=== PATIENT | female | born 2000 | race Caucasian/White ===

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

== ENCOUNTER → 2021-02-12 | Outpatient (CLI) | payer OTHER ==
[2021-02-12 11:17] LABS: MEAN CORPUSCULAR HEMOGLOBIN 29.5 pg (27.0-34.8); MEAN CORPUSCULAR HGB CONC 34.2 g/dL (32.4-35.8); MEAN PLATELET VOLUME 7.9 fL (7.4-10.4); PLATELET COUNT 271 x10^3/uL (130-400); RED BLOOD COUNT 4.28 x10^6/uL (3.82-5.3); RED CELL DISTRIBUTION WIDTH 13.6 % (9.6-15.2)
== END | disposition home or self-care (01) ==
LOC: LAB 09:58
PROVIDERS: ATTEND Obstetrics & Gynecology
DX: Z34.82 Encounter for supervision of other normal pregnancy, second trimester (principal)
CPT/HCPCS: 36415; 82950; 85027; 86592

== ENCOUNTER 2021-02-15 15:23 | Outpatient (CLI) | payer OTHER ==
[~2021-02-15] VITALS: Ht 157.5 cm; Wt 90.9 kg
[2021-02-15 16:39] LABS: MICROSCOPIC INDICATED
== END 2021-02-15 17:20 | disposition home or self-care (01) ==
LOC: LDOP 15:23
PROVIDERS: ATTEND Obstetrics & Gynecology
DX: O16.9 Unspecified maternal hypertension, unspecified trimester (principal); O26.899 Other specified pregnancy related conditions, unspecified trimester; R42 Dizziness and giddiness
CPT/HCPCS: 81001; 87086; 99211; G0463

== ENCOUNTER 2021-03-08 21:12 | Outpatient (CLI) | payer OTHER ==
[~2021-03-08] VITALS: Ht 157.5 cm; Wt 90.9 kg
[2021-03-08 22:00] LABS: MICROSCOPIC INDICATED
== END 2021-03-08 23:13 | disposition home or self-care (01) ==
LOC: LDOP 21:12
PROVIDERS: ATTEND Obstetrics & Gynecology
DX: O26.893 Other specified pregnancy related conditions, third trimester (principal); R10.2 Pelvic and perineal pain; Z3A.29 29 weeks gestation of pregnancy
CPT/HCPCS: 59025; 81001; 87086

== ENCOUNTER 2021-05-01 20:23 | Outpatient (CLI) | payer MEDICAID, OTHER ==
[2021-05-01 21:32] LABS: MICROSCOPIC INDICATED
== END 2021-05-01 22:40 | disposition home or self-care (01) ==
LOC: LDOP 20:23
PROVIDERS: ATTEND Obstetrics & Gynecology
DX: O26.893 Other specified pregnancy related conditions, third trimester (principal); R10.9 Unspecified abdominal pain; Z3A.37 37 weeks gestation of pregnancy
CPT/HCPCS: 59025; 81001; 87086

== ENCOUNTER 2021-05-14 10:48 | Inpatient (IN) | payer OTHER, MEDICAID ==
[~2021-05-14] VITALS: Ht 157.5 cm; Wt 104.5 kg
[2021-05-14] MEDS ORDERED: FENTANYL PF 100 MCG/2ML IV PRN (11:00)
[2021-05-14] MEDS ORDERED: OXYTOCIN 30U/ 0.9% NaCL 500ML 500 ML IV PRN (11:00)
[2021-05-14] MEDS ORDERED: TERBUTALINE 1 MG/ML, 1ML SQ PRN (11:00)
[2021-05-14] MEDS ORDERED: ONDANSETRON 2MG/ML, 2ML IVPush PRN (11:00)
[2021-05-14] MEDS ORDERED: D5%-LACTATED RINGERS 1,000 ML IV SCH (11:00)
[2021-05-14] MEDS ORDERED: FENTANYL PF 100 MCG/2ML IVPush PRN (11:00)
[2021-05-14] MEDS ORDERED: TERBUTALINE 1 MG/ML, 1ML IVPush PRN (11:00)
[2021-05-14] MEDS ORDERED: OXYTOCIN 30U/ 0.9% NaCL 500ML 500 ML IV ONE (11:00)
[2021-05-14 11:36] LABS: BASOPHILS % (AUTO) 0 % (0-1); EOSINOPHILS % (AUTO) 1 % (1-7); LYMPHOCYTES % (AUTO) 16 % (22-44); MEAN CORPUSCULAR HEMOGLOBIN 26.8 pg (27.0-34.8); MEAN CORPUSCULAR HGB CONC 33.9 g/dL (32.4-35.8); MEAN PLATELET VOLUME 8.7 fL (7.4-10.4); MONOCYTES % (AUTO) 7 % (2-9); NEUTROPHILS % (AUTO) 76 % (42-75); PLATELET COUNT 242 x10^3/uL (130-400); RED BLOOD COUNT 4.31 x10^6/uL (3.82-5.3); RED CELL DISTRIBUTION WIDTH 15.1 % (9.6-15.2)
[2021-05-14 11:47] LABS: MICROSCOPIC INDICATED
[2021-05-14 11:52] LABS: CHLORIDE 109 mmol/L (98-107)
[2021-05-14 11:57] LABS: CREATININE,URINE RANDOM 83.5 mg/dL
[2021-05-14 12:18] LABS: ALANINE AMINOTRANSFERASE 14 U/L (12-78); ALBUMIN 2.3 g/dL (3.4-5.0); ALKALINE PHOSPHATASE 318 U/L (45-117); ANION GAP 9 mmol/L (5-15); BILIRUBIN, DIRECT 0.1 mg/dL (0.1-0.2); BILIRUBIN,TOTAL 0.3 mg/dL (0.2-1.0); CALCIUM 8.8 mg/dL (8.5-10.1); CREATININE 0.34 mg/dL (0.55-1.02); TOTAL PROTEIN 6.9 g/dL (6.4-8.2)
[2021-05-14] MEDS ORDERED: NEWBORN KIT ONE (15:53)
[2021-05-14] MEDS ORDERED: LIDOCAINE 1%, 20ML ONE (17:03)
[2021-05-14] MEDS ORDERED: MISOPROSTOL 200 MCG TABLET ONE (17:03)
[2021-05-15] MEDS ORDERED: MISOPROSTOL 25 MCG TABLET ONE (08:19)
[2021-05-15] MEDS ORDERED: FENTANYL/BUPIV./NS/PF 250 ML EPIDCONT SCH (15:30)
[2021-05-15] MEDS ORDERED: LACTATED RINGERS 1,000 ML IV SCH (15:30)
[2021-05-15] MEDS ORDERED: NALOXONE 0.4 MG/ML, 1ML IVPush PRN (15:30)
[2021-05-15] MEDS ORDERED: EPHEDRINE 50 MG/ML, 1ML IVPush PRN (15:30)
[2021-05-15] MEDS ORDERED: LACTATED RINGERS 1,000 ML IVBOLUS PRN (15:30)
[2021-05-15] MEDS ORDERED: BUPIVACAINE 0.25% ONE (17:06)
[2021-05-15] MEDS: LACTATED RINGERS 1,000 ML IV SCH ×2 (17:14→23:12)
[2021-05-16] MEDS ORDERED: ALBUTEROL SULFATE 2.5 MG/3 ML NPPB PRN (02:00)
[2021-05-16] MEDS ORDERED: hydrALAzine 20 MG/ML, 1ML IV PRN (02:00)
[2021-05-16] MEDS ORDERED: HYDROcodone/APAP 7.5-325MG/15ML UDC PO PRN (02:00)
[2021-05-16] MEDS ORDERED: PROMETHAZINE 25 MG/ML, 1ML IV PRN (02:00)
[2021-05-16] MEDS ORDERED: METOPROLOL 1 MG/ML, 5ML IV PRN (02:00)
[2021-05-16] MEDS ORDERED: MEPERIDINE/PF 25MG/0.5ML IVPush PRN (02:00)
[2021-05-16] MEDS ORDERED: HYDROmorphone 2 MG/ML, 1ML IVPush PRN (02:00)
[2021-05-16] MEDS ORDERED: LABETALOL 5MG/ML, 20ML IV PRN (02:00)
[2021-05-16] MEDS ORDERED: ONDANSETRON 2MG/ML, 2ML IVPush PRN (02:00)
[2021-05-16] MEDS ORDERED: EPHEDRINE 50 MG/ML, 1ML IVPush PRN (02:00)
[2021-05-16] MEDS ORDERED: FENTANYL PF 100 MCG/2ML IV PRN (02:00)
[2021-05-16] MEDS ORDERED: OXYcodone 5 MG/5 ML ORAL.SOL UDC PO PRN (02:00)
[2021-05-16] MEDS ORDERED: MIDAZOLAM 1 MG/ML, 2ML IV PRN (02:00)
[2021-05-16] MEDS ORDERED: SODIUM CITRATE/CITRIC ACID 15 ML UDC ONE (04:35)
[2021-05-16] MEDS ORDERED: METOCLOPRAMIDE 5 MG/ML, 2ML ONE (04:35)
[2021-05-16] MEDS ORDERED: PROPOFOL 10 MG/ML, 20ML ONE (04:49)
[2021-05-16] MEDS ORDERED: OXYTOCIN 10 UNITS/ML, 1ML ONE (04:49)
[2021-05-16] MEDS ORDERED: PHENYLEPHRINE 10 MG/ML ONE (04:49)
[2021-05-16] MEDS ORDERED: CEFAZOLIN 1,000 MG ONE (04:49)
[2021-05-16] MEDS ORDERED: DEXAMETHASONE 4 MG/ML, 1ML ONE (04:49)
[2021-05-16] MEDS ORDERED: KETOROLAC 30 MG/1 ML ONE (04:49)
[2021-05-16] MEDS ORDERED: ONDANSETRON 2MG/ML, 2ML ONE (04:49)
[2021-05-16] MEDS ORDERED: SUCCINYLCHOLINE 20 MG/ML, 10ML ONE (04:49)
[2021-05-16] MEDS ORDERED: EPHEDRINE 50 MG/ML, 1ML ONE (04:49)
[2021-05-16] MEDS ORDERED: FENTANYL PF 100 MCG/2ML ONE ×2 (04:52→04:53)
[2021-05-16] MEDS ORDERED: CALCIUM CARBONATE 500 MG TAB.CHEW PO PRN (05:00)
[2021-05-16] MEDS ORDERED: SODIUM CITRATE/CITRIC ACID 30 ML UDC PO ONE (05:00)
[2021-05-16] MEDS ORDERED: HYDROmorphone 2 MG/ML, 1ML ONE (05:48)
[2021-05-16] MEDS: LACTATED RINGERS 1,000 ML IV SCH ×5 (06:30→22:30)
[2021-05-16] MEDS ORDERED: GLYCERIN ADULT SUPP PR PRN (06:30)
[2021-05-16] MEDS ORDERED: ONDANSETRON 2MG/ML, 2ML IV PRN (06:30)
[2021-05-16] MEDS ORDERED: MISOPROSTOL 200 MCG TABLET PR PRN (06:30)
[2021-05-16] MEDS ORDERED: SIMETHICONE 80 MG CHEW TAB PO PRN (06:30)
[2021-05-16] MEDS ORDERED: CARBOPROST TROMETHAMINE 250 MCG/ML, 1ML IM PRN (06:30)
[2021-05-16] MEDS ORDERED: BISACODYL 10 MG SUPP PR PRN (06:30)
[2021-05-16] MEDS: OXYTOCIN 30U/ 0.9% NaCL 500ML 500 ML IV SCH ×2 (07:30→16:30)
[2021-05-16] MEDS: PRENATAL VIT/IRON/FA 1 EACH TABLET PO SCH (09:00)
[2021-05-16 10:08] VITALS: BP 121/74
[2021-05-16 12:20] VITALS: BP 111/70
[2021-05-16] MEDS: OXYcodone/APAP 5/325MG TABLET PO PRN ×3 (14:21→23:08)
[2021-05-16 15:55] LABS: MEAN CORPUSCULAR HEMOGLOBIN 26.3 pg (27.0-34.8); MEAN CORPUSCULAR HGB CONC 33.1 g/dL (32.4-35.8); MEAN PLATELET VOLUME 8.3 fL (7.4-10.4); PLATELET COUNT 253 x10^3/uL (130-400); RED BLOOD COUNT 4.17 x10^6/uL (3.82-5.3); RED CELL DISTRIBUTION WIDTH 14.9 % (9.6-15.2)
[2021-05-16 16:30] VITALS: BP 113/65
[2021-05-16 18:12] LABS: BAND#(MANUAL) 4.16 x10^3/uL; BANDS%(MANUAL) 16 % (0-7); LYMPH#(MANUAL) 1.04 x10^3/uL (1-6.1); LYMPHS% (MANUAL) 4 % (22-44); MONOS#(MANUAL) 1.04 x10^3/uL (0.3-2.7); MONOS% (MANUAL) 4 % (2-9); SEG#(MANUAL) 19.76 x10^3/uL (1.8-8); SEGS% (MANUAL) 76 % (42-75)
[2021-05-16 18:14] LABS: <PLATELET ESTIMATE> ADEQUATE; <PLT MORPHOLOGY> NORMAL PLT MORPH; ANISOCYTOSIS 1+; HYPOCHROMIA 1+; POLYCHROMASIA 1+
[2021-05-16 19:10] VITALS: BP 109/64
[2021-05-17 01:29] VITALS: BP 110/66
[2021-05-17] MEDS: IBUPROFEN 800 MG TABLET PO PRN ×3 (01:42→20:34)
[2021-05-17] MEDS: LACTATED RINGERS 1,000 ML IV SCH ×6 (02:30→22:30)
[2021-05-17] MEDS: OXYTOCIN 30U/ 0.9% NaCL 500ML 500 ML IV SCH ×3 (02:30→22:30)
[2021-05-17] MEDS: OXYcodone/APAP 5/325MG TABLET PO PRN ×5 (04:02→22:30)
[2021-05-17 04:03] VITALS: BP 109/67
[2021-05-17 07:29] VITALS: BP 104/67
[2021-05-17] MEDS: PRENATAL VIT/IRON/FA 1 EACH TABLET PO SCH (07:50)
[2021-05-17] MEDS: DOCUSATE 100 MG CAPSULE PO PRN ×2 (07:50→20:34)
[2021-05-17 19:48] VITALS: BP 114/77
[2021-05-18] MEDS: OXYcodone/APAP 5/325MG TABLET PO PRN ×2 (04:00→08:30)
[2021-05-18] MEDS: LACTATED RINGERS 1,000 ML IV SCH ×2 (04:40→08:30)
[2021-05-18] MEDS: IBUPROFEN 800 MG TABLET PO PRN (05:31)
[2021-05-18 07:30] VITALS: BP 124/86
[2021-05-18] MEDS ORDERED: OXYC1TAB12 PO (07:51)
[2021-05-18] MEDS ORDERED: DOCU-192 PO (07:51)
[2021-05-18] MEDS ORDERED: IBUP-1223 PO (07:51)
[2021-05-18] MEDS: PRENATAL VIT/IRON/FA 1 EACH TABLET PO SCH (08:29)
[2021-05-18] MEDS: DOCUSATE 100 MG CAPSULE PO PRN (08:29)
[2021-05-18] MEDS: OXYTOCIN 30U/ 0.9% NaCL 500ML 500 ML IV SCH (08:30)
== END 2021-05-18 13:07 | disposition home or self-care (01) | DRG 788 ==
LOC: LDOP 10:48 → LDIP 13:58 → 2NW 05-16 08:27
PROVIDERS: ADMIT Obstetrics & Gynecology; ATTEND Obstetrics & Gynecology
PROC: 10D00Z1 Extraction of Products of Conception, Low, Open Approach (ICD-10-PCS; principal; 2021-05-16)
DX: O13.4 Gestational [pregnancy-induced] hypertension without significant proteinuria, complicating childbirth (principal); Z3A.39 39 weeks gestation of pregnancy; Z37.0 Single live birth; O77.9 Labor and delivery complicated by fetal stress, unspecified; Z20.822 Contact with and (suspected) exposure to COVID-19
CPT/HCPCS: 36415; 80053; 81001; 82248; 82570; 84156; 84550; 85025; 86592; 86850; 86900; 87635; G0378; J0690; J1100; J1170; J1885; J2405; J2704; J3010; J0330; J2370; J2590; J7120